=== PATIENT | female | born 1975 | race Caucasian/White ===

== ENCOUNTER 2018-06-27 07:03 | Inpatient (IN) ==
--- NOTE | 2018-06-27 06:50 | Discharge Summary ---
<Cuong Feliciano - Last Filed: 06/27/18 08:19> Orders not resulted at time of discharge: Pending orders 06/27/18 06:50 XR knee RT limited 1-2V [XR] Routine H/H [Hemoglobin and Hematocrit] [HEME] Routine 06/27/18 07:37 CBC [Complete Blood Count] [HEME] Stat 06/27/18 07:41 US anesthesia pain block [US] Routine Date of Encounter: 06/27/18 - Discharge Diagnosis (1) Arthritis of knee, right Priority: Primary Status: Chronic (2) Status post total knee replacement, right Priority: Primary Status: Acute (3) COPD (chronic obstructive pulmonary disease) Priority: Secondary Status: Chronic Qualifiers: COPD type: unspecified COPD Qualified Code(s): J44.9 - Chronic obstructive pulmonary disease, unspecified (4) Seizure disorder Priority: Secondary Status: Chronic (5) Morbid obesity with BMI of 40.0-44.9, adult Priority: Secondary Status: Chronic - Hospital Course Hospital course: Ms. Alatorre is a 43 year old female - Time Spent with Patient Total time spent providing and/or coordinating discharge services: - Discharge Medications Home Medications: Albuterol Sulfate [Proair Hfa] 2 puff IH Q4H PRN 01/26/18 [History] Amitriptyline [Elavil] 50 mg PO HS 01/26/18 [History] Cyclobenzaprine [Flexeril] 10 mg PO TID PRN 01/26/18 [History] Fluticasone/Salmeterol [Advair Hfa 115-21 Mcg Inhaler] 2 puff IH BID 01/26/18 [ History] LevETIRAcetam [Keppra] 1,000 mg PO BID 01/26/18 [History] Promethazine [Phenergan] 25 mg PO Q6HR PRN 01/26/18 [History] hydrOXYzine HCl [Hydroxyzine HCl] 50 mg PO Q6H PRN 01/26/18 [History] Aspirin Enteric Coated [Aspirin EC] 325 mg PO BID #20 tablet. 06/27/18 [Rx] Celecoxib [Celebrex] 200 mg PO Q12H 06/27/18 [History] Gabapentin [Neurontin] 800 mg PO TID 06/27/18 [History] OxyCODONE Immed Rel [Roxicodone 5 MG] 5 mg PO Q6HR PRN 7 Days #28 tablet [Rx] Quetiapine Fumarate [Seroquel] 50 mg PO HS 06/27/18 [History] traZODone [TraZODone] 50 mg PO HS 06/27/18 [History] Allergies/Adverse Reactions: 3 Allergy/AdvReac Type Severity Reaction Status Date / Time No Known Allergies Allergy Verified 06/27/18 08:40 Primary care physician: Viji Mack MD - Patient Status Disposition: Home Health Service Condition: Good - Discharge Instructions Follow Up With: Viji Mack MD [Primary Care Provider] - <Liset Kamara - Last Filed: 06/27/18 16:26> Orders not resulted at time of discharge: Pending orders 06/27/18 06:50 XR knee RT limited 1-2V [XR] Routine H/H [Hemoglobin and Hematocrit] [HEME] Routine Date of Encounter: 06/27/18 Time of Encounter: 16:23 - Discharge Diagnosis (1) Status post total knee replacement, right Priority: Primary Status: Acute Comments: Right Knee: Opsite dressing, leave intact until first post-operative visit. If dressing becomes >50% saturated, contact office, remove dressing and place appropriate dressing in its place. Do not allow for dressing to get wet. Natacha/Zipline dressing in place, plan to remove at POD#14-16. PT: Total Joint Precautions x 6 weeks Apply ICE/cold therapy wrap 3-6x/day for 20 minutes at a time. Encourage ambulation throughout the day and incentive spirometer 10x/hour. Elevate affected extremity above heart as tolerated. Brace: Knee immobilizer at night until first post-operative appointment. (2) Arthritis of knee, right Priority: Primary Status: Chronic (3) Seizure disorder Priority: Secondary Status: Chronic (4) COPD (chronic obstructive pulmonary disease) Priority: Secondary Status: Chronic Qualifiers: COPD type: unspecified COPD Qualified Code(s): J44.9 - Chronic obstructive pulmonary disease, unspecified - Hospital Course Hospital course: Ms. Alatorre is a 43 year old female, s/p Right TKR 06/27/18 Short CBC 06/27/18 Range/Units 11:23 WBC 9.6 (4.3-11.1) K/mcL Hgb 10.9 L D (11.5-15.4) g/dL Hct 34.7 L (35.3-44.9) % Plt Count 303 (140-400) K/mcL Neutrophils # 7.2 (1.6-8.9) K/mcL Vital Signs Temp Pulse Resp BP Pulse Ox 06/27/18 15:28 97.6 F 100 14 116/78 98 06/27/18 14:43 97.9 F 102 16 107/65 97 06/27/18 13:30 98.4 F 94 20 114/77 97 06/27/18 12:23 97.4 F L 75 16 112/79 98 06/27/18 12:15 97.6 F 77 16 119/84 96 06/27/18 11:47 97.5 F L 79 16 123/89 95 06/27/18 11:32 97.9 F 78 14 122/84 95 06/27/18 11:22 77 16 123/83 96 06/27/18 11:12 81 16 115/81 99 06/27/18 11:02 97.2 F L 78 16 117/72 97 06/27/18 09:24 88 115/73 100 06/27/18 09:12 87 118/73 98 06/27/18 09:01 91 137/68 98 06/27/18 08:45 89 144/74 100 06/27/18 08:03 98.1 F 87 18 108/76 98 06/27/18 07:35 98.1 F 87 18 108/76 98 Intake and Output 06/27/18 06/27/18 06/27/18 07:59 15:59 23:59 Intake Total 1360 / 1360 Output Total 200 / 200 Balance 1160 / 1160 Intake: IV Fluids 1000 / 1000 Lactated Ringers 1,000 ML @ 25 1000 / 1000 mls/hr IVC .Q24H FRACISCO Rx#: [id number] Oral 360 / 360 Output: Estimated Blood Loss 200 / 200 Other: Meal Lunch Percent of Meal Consumed 95% # Voids 1 Weight 108.409 kg 108.409 kg Patient Weight 06/27/18 23:59 Weight 108.409 kg Patient doing well, no acute post-operative complications. Patient is requesting to go home, discharging in stable condition home with home health. - Time Spent with Patient Total time spent providing and/or coordinating discharge services: Date of admission: 06/27/18 Primary care physician: Viji Mack MD Discharging clinician: Liset Kamara Anticipated date of discharge: 06/27/18 - Patient Status Functional capacity at discharge: independent ambulation Overall status at discharge: patient is back to baseline
[2018-06-27] MEDS ORDERED: Pregabalin 75 MG CAPSULE PO ONE (07:40)
[2018-06-27] MEDS ORDERED: Famotidine 20 MG/2 ML VIAL IVP ONE (07:40)
[2018-06-27] MEDS ORDERED: Acetaminophen IV 1,000 MG/100 ML INFUS..BTL IVPB ONE (07:40)
[2018-06-27] MEDS ORDERED: CeFAZolin Syr 2,000MG/20 ML 2,000 MG/20 ML SYRINGE IVPB ONE (07:47)
[2018-06-27] MEDS ORDERED: Albuterol 2.5 MG/3 ML NEBULIZER IH ONE (07:47)
[2018-06-27] MEDS: Ringers Solution, Lactated 1,000 ML IVC SCH ×2 (08:11→10:15)
[2018-06-27] MEDS ORDERED: Morphine Sulfate/PF 5mg/10mL Vial ONE (08:13)
[2018-06-27] MEDS ORDERED: Bupivacaine/Clonidine Syringe 1 EACH SYRINGE ONE (08:14)
[2018-06-27] MEDS ORDERED: ROPIVACAINE HCL/PF 0.5% 30 ML VIAL ONE (08:14)
--- NOTE | 2018-06-27 08:17 | History & Physical Report ---
Date of Encounter: 06/27/18 Time of Encounter: 08:17 24 Hour HP Update - Instructions Instructions: If the History and Physical is less than 30 days old and was completed prior to A.M. admission and or procedure and has NOT been updated on calendar day of procedure please complete this update prior to performing procedure. - Update Patient reports changes in Medical Condition: No Changes in examination, assessment, or condition: No Changes in Medication: No Preop tests/diagnostics Reviewed: Yes Surgery Remains Indicated: Yes Consent for Planned Operative Procedure(s) Verified: Yes - Pre-Operative Checklist Preoperative Checklist Indicated: No Prophylactic Antibiotic Ordered: Yes Is VTE Prophylaxis Indicated?: Yes
[2018-06-27] MEDS ORDERED: Lidocaine -MPF 1% 5 ML AMPUL ONE (08:18)
--- NOTE | 2018-06-27 08:20 | Anesthesia Evaluation PreOp ---
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: Seizures Other Medical History: Other (Anxiety) Anesthesia History: No Prior Anesthetic Complications : No Test: Negative Alcohol Use: none Drug use: none Medications and Allergies Albuterol Sulfate [Proair Hfa] 2 puff IH Q4H PRN 01/26/18 [History] Amitriptyline [Elavil] 50 mg PO DAILY 01/26/18 [History] Aripiprazole [Abilify] 15 mg PO DAILY 01/26/18 [History] Cyclobenzaprine [Flexeril] 10 mg PO TID 01/26/18 [History] Fluticasone/Salmeterol [Advair Hfa 115-21 Mcg Inhaler] 2 puff IH BID 01/26/18 [ History] LevETIRAcetam [Keppra] 1,000 mg PO BID 01/26/18 [History] Pregabalin [Lyrica] 150 mg PO HS 01/26/18 [History] Promethazine [Phenergan] 12.5 mg PO Q6HR 01/26/18 [History] hydrOXYzine HCl [Hydroxyzine HCl] 50 mg PO DAILY 01/26/18 [History] traZODone [TraZODone] 50 mg PO HS 01/26/18 [History] DiphenhydraMINE [Benadryl] 25 mg PO Q8HR #10 capsule 02/01/18 [Rx] Aspirin Enteric Coated [Aspirin EC] 325 mg PO BID #20 tablet. 06/27/18 [Rx] OxyCODONE Immed Rel [Roxicodone 5 MG] 5 mg PO Q6HR PRN 7 Days #28 tablet [Rx] 3 Allergy/AdvReac Type Severity Reaction Status Date / Time No Known Allergies Allergy Verified 06/22/18 12:27 - Meds/Allergy Pre-op Review Medications Reviewed: Yes Allergies Reviewed: Yes Beta Blockers on Current Med List: No Anesthesia Results - Labs Laboratory Tests 06/22/18 06/22/18 12:35 12:35 Hgb 14.0 Hct 42.3 Plt Count 450 H Sodium 135 L Potassium 3.7 BUN 7 Creatinine 0.85 Anesthesia Exam O2 Sat Height 1.63 m Height 1.63 m Height 1.63 m Weight 108.409 kg Weight 108.409 kg Weight 108.409 kg O2 Sat by Pulse Oximetry 98 O2 Sat by Pulse Oximetry 98 Vital Signs Temp Pulse Resp BP Pulse Ox 98.1 F 87 18 108/76 98 06/27/18 07:35 06/27/18 07:35 06/27/18 07:35 06/27/18 07:35 06/27/18 07:35 Height: 5'4 Weight: 239 lbs NPO (# of Hours): MN Pain Scale: 0 - HEENT Pupil (Motor): Pupils equal, EOMI Mallampati: II Teeth: Normal Oral Opening: Greater than 3 - FUR EXAMINER LOC: Oriented FUR EXAMINER Motor: Normal RUE, Normal LUE, Normal RLE, Normal LLE, Normal Face FUR EXAMINER Sensory: Normal: RUE, LUE, RLE, LLE, Face - Cardiac Rhythm: Regular Murmur: None JVD: No Carotid Bruit: No - Pulmonary Breath Sounds: bilateral Clear Respiratory Effort: Symmetrical Anesthesia Assess/Plan ASA Score: 2 Modified Emily Scale for Level of Consciousness: Cooperative, oriented, and tranquil Anesthetic Plan: Regional, MAC Monitoring Plan: Standard Monitors Recovery Plan: PACU (Discussed SAB with Adductor Canal Block, possible GA, agrees to proceed)
[2018-06-27] MEDS ORDERED: Ethanol\\Acetic Acid\\Na Ace\\Ben 1,000 ML IRRIG.SOLN IR ONE (08:25)
[2018-06-27] MEDS ORDERED: *HR* FentaNYL (PF) 100 MCG/2 ML VIAL ONE (08:31)
[2018-06-27] MEDS ORDERED: *HR* Midazolam HCl 2 MG/2 ML VIAL ONE ×2 (08:31→09:26)
[2018-06-27] MEDS ORDERED: *HR* Propofol 200 MG/20 ML VIAL IVP ONE (08:32)
[2018-06-27] MEDS ORDERED: Lidocaine -MPF 2% 2 ML VIAL ONE (08:32)
[2018-06-27] MEDS ORDERED: Propofol 500 MG/50 ML INFUS..BTL ONE (08:42)
--- NOTE | 2018-06-27 09:16 | Anesthesia Procedures ---
Date of Encounter: 06/27/18 Time of Encounter: 09:00 Procedures: Anesthesia - Epidural/Spinal Patient ID/Chart reviewed: Yes Patient examined: Yes Sedation: Versed (mg): 4 Sedation: Fentanyl (mcg): 100 Site Prep: Aseptic Technique, Sterile prep and drape, 0.5% Chlorhexidine/Alcohol Patient position: upright Local Anesthetic: Lidocaine 1% Amount of Local Anesthetic used: 4 Interspace Used: L2-L3 (first attempt at L3-4 per Pedrito Hernandez CRNA, second successful attempt at L 2-[address] Remy) Blood: No CSF: Yes Paresthesia: No Spinal Needle Gauge: 24 Spinal Dose: 2 ml 0.5 bupivacaine, 0.2mg duramorph Procedure: spinal for right total knee - Nerve Block Procedure Date: 06/27/18 Time: 09:00 Allergies/Adv Reactions: Allergies No Known Allergies Allergy (Verified 06/27/18 08:40) Pre-op Diagnosis: right knee arthritis Surgical Procedure: right robotic total knee Checklist: Correct Patient Identifier, Correct procedure, History checked Correct side: Right Blood Thinner: No Monitor Applied: EKG, BP, Pulse Oximetry Supplemental Oxygen via Nasal Cannula (L/min): 2 Indication: Post Op Analgesia Pre-op Neuro Deficits: No Block Type: Other (adductor) Catheter placed: No Sterile Technique: Yes Ultrasound used: Yes Anatomy identified: Yes Visual spread of Local: Yes Blood on Needle Aspiration: No Smooth Injection of Local: Yes Pain with Injection of Local: No Prep: Chlorhexadine Needle: 21 x 100 mm Stimuplex Local: Ropivacaine Volume (cc): 30 Vitals: Vital Signs Vital Signs Assessment Start: 06/27/18 07:40 Freq: CONT Status: Active Protocol: Activity Type Activity Date Activity User E-Sign Co-Sign Detail Recorded Client Recorded Date Recorded By Created 06/27/18 07:41 [id number] 06/27/18 07:41 [facility] DAEMON Temp Pulse Resp BP Pulse Ox 06/27/18 09:12 87 118/73 98 06/27/18 09:01 91 137/68 98 06/27/18 08:45 89 144/74 100 06/27/18 08:03 98.1 F 87 18 108/76 98 06/27/18 07:35 98.1 F 87 18 108/76 98
[2018-06-27] MEDS ORDERED: *HR* Promethazine 25 MG/ML VIAL IVP PRN (10:24)
[2018-06-27] MEDS ORDERED: *HR* Midazolam HCl 2 MG/2 ML VIAL IVP PRN (10:24)
[2018-06-27] MEDS ORDERED: *HR* HYDROmorphone (PF) 1 MG/ML SYRINGE IVP PRN (10:24)
[2018-06-27] MEDS ORDERED: *HR* OxyCODONE Immed Rel 5 MG TABLET PO PRN ×2 (10:24→12:08)
[2018-06-27] MEDS ORDERED: Albuterol 2.5 MG/3 ML NEBULIZER IH PRN (10:24)
--- NOTE | 2018-06-27 10:32 | Orthopedic Operative Note ---
Date of procedure: 06/27/18 Pre-op diagnosis: right knee arthritis Post-op diagnosis: same Procedure: Procedure:Right robotic-assisted Total knee replacement Estimated blood loss: 200 cc Hardware: Metal and polyethylene replacement. [place] Femur: 3 Tibia: 4 TS insert: 11 Patella: 36 Exam Under 8 degrees of hyperextension and 4 degrees of valgusanesthesia:as calculated by the robot full flexion and no instability Procedural Notes: Grade 3 arthritic changes all 3 compartments Operative procedure: The patient was brought to the operating room and placed on the operating room table. After general anesthesia was administered the operative knee was examined. Findings were noted in the exam under anesthesia. The operative extremity was prepped and draped in sterile surgical fashion. The patient received IV antibiotics prior to skin incision. A standard midline incision was made centered over the patella. The incision was made through the skin and subcutaneous tissue. A medial parapatellar tendon approach was performed. Care was taken to preserve tissue along the medial aspect of the patella. And to protect the patella tendon. The deep MCL was released off the medial tibia. The infra patella fat pad was excised. The patella was everted and cut was made at the level of the insertion of the quadriceps and patella tendon. The patella was sized to a 36 the guide was seated and the lug holes are drilled. Knee was brought into flexion. Patient noted to have Steinmann pins were placed in the tibia and the femur for the tibial and femoral arrays respectively. Checkpoints were also placed in the tibia and the femur for calculation purposes. The knee including the femur and the tibial registered. Osteophytes, ACL and PCL were excised at this point. Extension and flexion were assessed with a valgus stress components were adjusted on the computer to balance the knee. Femoral cuts were made first with robotic assistance, these included the anterior cut posterior cuts chamfer cuts. Tibial cut was then performed with robotic assistance as well. Bone fragments were removed, as well as the medial and lateral meniscus. The size 3 femoral guide was seated box cut was made lug holes are drilled. The size 4 tibial tray was seated and prepared with the fin cutter. Trial reduction with the 11 TS Poonam revealed extension of 3 degree upper extension and 0 degrees varus valgus full flexion. No varus valgus instability. Trial reduction revealed excellent patella tracking. All trial components were removed all bony surfaces were irrigated. The Tibia was seated followed by the femur, The Poonam size 11 was seated and secured patella. Patient had similar findings for motion and stability. The knee was closed by the PA. The knee was then irrigated out with 2 L of pulse irrigation. The extensor mechanism was closed with #2 FiberWire suture and #2 PDS suture. The subcutaneous tissue was then irrigated and closed deep with #1 PDS suture superficially with 0 PDS suture and skin was closed with zip tie The patient was then placed in a sterile dressing and a postoperative brace extubated and transferred to recovery room in stable condition. Anesthesia: spinal Surgeon: Cuong Feliciano Was there an assistant plant control operator present: Yes Polysomnography Tech: Liset Kamara Estimated blood loss (cc): 200 Condition: stable Disposition: PACU
[2018-06-27] MEDS ORDERED: Ondansetron 4 MG/2 ML VIAL ONE (10:42)
[2018-06-27] MEDS ORDERED: Dexamethasone 4 MG/ML VIAL ONE (10:42)
[2018-06-27 11:36] LABS: Basophils # 0.1 K/mcL (0.0-0.2); Basophils % 0.6 %; Eosinophils # 0.1 K/mcL (0.0-0.6); Hematocrit 34.7 % (35.3-44.9); Immature Granulocytes % 0.4 % (0-4); Lymphocytes # 1.9 K/mcL (0.6-4.6); Lymphocytes % 20.1 %; Mean Corpuscular HGB Conc 31.4 g/dL (31.6-35.5); Mean Corpuscular Hemoglobin 26.3 pg (28.0-33.3); Mean Corpuscular Volume 83.6 fL (83.0-100.0); Mean Platelet Volume 10.1 fL (9.4-12.4); Monocytes # 0.3 K/mcL (0.0-1.3); Monocytes % 2.6 %; Neutrophils # 7.2 K/mcL (1.6-8.9); Platelet Count 303 K/mcL (140-400); Red Blood Count 4.15 M/mcL (3.82-4.97); Red Cell Distribution Width 17.4 % (11.5-14.5); Segmented Neutrophils % 75.3 %
[2018-06-27 11:40] LABS: Hemoglobin 10.9 g/dL (11.5-15.4)
--- NOTE | 2018-06-27 11:41 | Anesthesia Evaluation Post Op ---
Date of Encounter: 06/27/18 Time of Encounter: 11:40 - Vital Signs Vital Signs: Vital Signs/O2 Sat/Glucose, Most Recent Temp Pulse Resp BP Pulse Ox 97.9 F 78 14 122/84 95 06/27/18 11:32 06/27/18 11:32 06/27/18 11:32 06/27/18 11:32 06/27/18 11:32 - Lungs Lungs: Clear Ascult./Percussion - Airway Airway: Non-obstructed - Cardiovascular Regular Rate - Mental Status Mental Status: Alert & Oriented, Answers Appropriately - Pain Pain Scale: 0 - Nausea Vomiting Nausea Vomiting: Not Present - Hydration Hydration: Ice chips - Discharge PostOp Status: Transfer Patient to floor
[2018-06-27] MEDS ORDERED: Naloxone 0.4 MG/ML INJ IVP PRN (12:08)
[2018-06-27] MEDS ORDERED: Temazepam 15 MG CAPSULE PO PRN (12:08)
[2018-06-27] MEDS ORDERED: Ringers Solution, Lactated 1,000 ML IVC SCH (12:08)
[2018-06-27] MEDS ORDERED: Sennosides 8.6 MG TABLET PO PRN (12:08)
[2018-06-27] MEDS ORDERED: *HR* OxyCODONE/APAP 5/325 TABLET PO PRN (12:08)
[2018-06-27] MEDS ORDERED: Ondansetron 4 MG/2 ML VIAL IVP PRN (12:08)
[2018-06-27] MEDS ORDERED: traMADol 50 MG TABLET PO PRN (12:08)
[2018-06-27] MEDS ORDERED: MOM Conc 10 ML UD.LIQ PO PRN (12:08)
[2018-06-27] MEDS: clonazePAM 1 MG TABLET PO SCH ×2 (12:36→15:19)
[2018-06-27] MEDS ORDERED: Gabapentin 400 MG CAPSULE PO SCH (15:00)
[2018-06-27 15:29] VITALS: BP 116/78
--- NOTE | 2018-06-27 16:23 | Physician Discharge Referral ---
Home Health/Hosp Referral Info Transfer to: Home Health Attending Provider: Provider in Charge Post Discharge: PCP - Diagnosis (1) Status post total knee replacement, right Priority: Primary Status: Acute (2) Arthritis of knee, right Priority: Primary Status: Chronic (3) Seizure disorder Priority: Secondary Status: Chronic (4) COPD (chronic obstructive pulmonary disease) Priority: Secondary Status: Chronic - Respiratory Orders None Smoking Cessation: Smoking cessation has been advised. For more information, call the [place] Tobacco Quit Line at 4-994-RMFD-NOW. - Diet/Nutrition Diet/Nutrition Orders: Regular - Activity Activity Orders: Up ad osiris, Ambulate - Services Needed Following services are medically necessary services: Nursing, Home Health Aide, Physical Therapy, Occupational Therapy Home Care Orders: Right Knee: Opsite dressing, leave intact until first post-operative visit. If dressing becomes >50% saturated, contact office, remove dressing and place appropriate dressing in its place. Do not allow for dressing to get wet. Zipline dressing in place, plan to remove at POD#14-16. PT: Total Joint Precautions x 6 weeks Apply ICE/cold therapy wrap 3-6x/day for 20 minutes at a time. Encourage ambulation throughout the day and incentive spirometer 10x/hour. Elevate affected extremity above heart as tolerated. Brace: Knee immobilizer at night until first post-operative appointment. - Transfer Medications Home Medications: Albuterol Sulfate [Proair Hfa] 2 puff IH Q4H PRN 01/26/18 [History] Amitriptyline [Elavil] 50 mg PO HS 01/26/18 [History] Cyclobenzaprine [Flexeril] 10 mg PO TID PRN 01/26/18 [History] Fluticasone/Salmeterol [Advair Hfa 115-21 Mcg Inhaler] 2 puff IH BID 01/26/18 [ History] LevETIRAcetam [Keppra] 1,000 mg PO BID 01/26/18 [History] Promethazine [Phenergan] 25 mg PO Q6HR PRN 01/26/18 [History] hydrOXYzine HCl [Hydroxyzine HCl] 50 mg PO Q6H PRN 01/26/18 [History] Aspirin Enteric Coated [Aspirin EC] 325 mg PO BID #20 tablet. 06/27/18 [Rx] Celecoxib [Celebrex] 200 mg PO Q12H 06/27/18 [History] Gabapentin [Neurontin] 800 mg PO TID 06/27/18 [History] OxyCODONE Immed Rel [Roxicodone 5 MG] 5 mg PO Q6HR PRN 7 Days #28 tablet [Rx] Quetiapine Fumarate [Seroquel] 50 mg PO HS 06/27/18 [History] traZODone [TraZODone] 50 mg PO HS 06/27/18 [History] Allergies/Adverse Reactions: 3 Allergy/AdvReac Type Severity Reaction Status Date / Time No Known Allergies Allergy Verified 06/27/18 08:40 Certification: Further, I certify that my clinical findings support that this patient is homebound (i.e. absences from home require considerable and taxing effort and are for medical reasons or latter day services or infrequently or short duration when for other reasons) because: Homebound Reason: Post-surgery restriction and or conditions limit ability to leave home Attestation: My signature below is to certify that this patient is under my care and that I, or nurse practitioner, or a physician's clinical education assistant working with me, has a face-to -face encounter with this patient.
[2018-06-27] MEDS ORDERED: *HR* Enoxaparin 30 MG/0.3 ML SYRINGE SQ SCH (18:21)
[2018-06-27] MEDS ORDERED: traZODone 50 MG TABLET PO SCH (21:00)
[2018-06-27] MEDS ORDERED: levETIRAcetam 250 MG TABLET PO SCH (21:00)
[2018-06-27] MEDS ORDERED: Budesonide/Formoterol 80/4.5 MDI IH SCH (22:00)
== END 2018-06-27 17:15 | disposition home health service (06) | DRG 470 ==
LOC: SAMDAY 07:03 → 3NENU 12:02
PROVIDERS: ADMIT Orthopaedic Surgery; ATTEND Orthopaedic Surgery